=== PATIENT | female | born 1955 | race Hispanic/Latino ===

== ENCOUNTER 2019-06-07 16:36 | Observation (INO) | payer OTHER ==
[~2019-06-07] VITALS: Ht 152.4 cm; Wt 101.4 kg
[2019-06-07 16:55] VITALS: BP 163/81
--- NOTE | 2019-06-07 16:55 | NUR ---
ASSESSMENT RECEIVED PT FROM ER, A&OX3, AMBULATING FROM GURNEY TO BED, GAIT SLOW BUT STEADY WITH ASSIST, PT DOES C/O SOB, DYSPNEA ON EXERTION AND DIZZINESS. PT PLACED ON O2 4LNC AND STATED SHE FELT BETTER. PT DENIES PAIN OR NAUSEA. PT RESTING COMFORTABLY, CALL LIGHT WITHIN REACH, FAMILY AT BEDSIDE.
[2019-06-07] MEDS ORDERED: LIPA1CAP18 PO ×2 (17:22)
[2019-06-07] MEDS ORDERED: ALBU8.5H8 IH (17:22)
[2019-06-07] MEDS ORDERED: LEVO5TAB13 PO (17:22)
[2019-06-07] MEDS ORDERED: TROS60CA4 PO (17:22)
[2019-06-07] MEDS ORDERED: MTH/1CAP7 PO (17:22)
[2019-06-07] MEDS ORDERED: ASPI-1181 PO (17:22)
[2019-06-07] MEDS ORDERED: OLME5TAB6 PO (17:22)
[2019-06-07] MEDS ORDERED: METO10TA41 PO (17:22)
[2019-06-07] MEDS ORDERED: OMEP40CA37 PO (17:22)
[2019-06-07] MEDS ORDERED: TIOT4MIS5 IH (17:22)
[2019-06-07] MEDS ORDERED: BUDE10.2 IH (17:22)
[2019-06-07 17:44] LABS: HEMATOCRIT 43.4 % (36-48); MEAN CORPUSCULAR HEMOGLOBIN 29.9 pg (27.0-33.0); MEAN CORPUSCULAR HGB CONC 33.5 g/dL (32.0-36.0); MEAN CORPUSCULAR VOLUME 89.2 fL (79-99); PLATELET COUNT (AUTO) 191 K/uL (130-400); RED BLOOD CELL COUNT(AUTO) 4.87 MIL/uL (4.00-5.50); RED CELL DISTRIBUTION WIDTH 13.9 % (11.0-15.5); WHITE BLOOD COUNT (AUTO) 6.6 K/uL (4.8-10.8)
[2019-06-07 17:58] LABS: ALBUMIN 3.7 g/dL (3.5-5.0); BILIRUBIN,TOTAL 0.6 mg/dL (0.2-1.0); CREATININE 0.7 mg/dL (0.5-1.5); POTASSIUM 4.2 mmol/L (3.5-5.1); TOTAL PROTEIN, SERUM 7.3 g/dL (6.0-8.3)
[2019-06-07 18:04] LABS: B-TYPE NATRIURETIC PEPTIDE 8 pg/mL (0-100)
[2019-06-07] MEDS: NITROGLYCERIN 1GM/1 INCH PACKET TD SCH (18:15)
[2019-06-07] MEDS ORDERED: POTASSIUM CHLORIDE 20 MEQ ERTAB PO PRN (18:15)
[2019-06-07] MEDS ORDERED: LIDOCAINE HCL-MPF 1% 2ML VIAL IVP PRN (18:15)
[2019-06-07] MEDS ORDERED: POTASSIUM CHLORIDE 10% ELIXIR 20 MEQ/15 ML UDCUP PO PRN (18:15)
[2019-06-07] MEDS ORDERED: POTASSIUM CHLORIDE 20MEQ/100ML 100 ML IV PRN (18:15)
[2019-06-07] MEDS ORDERED: DIPHENHYDRAMINE HCL 25 MG CAPSULE PO PRN (18:15)
[2019-06-07] MEDS ORDERED: ACETAMINOPHEN 325 MG TAB PO PRN (18:15)
[2019-06-07] MEDS ORDERED: DEXTROSE 50%-WATER 50 ML DISP.SYRIN IV PRN (18:15)
[2019-06-07] MEDS ORDERED: CLONIDINE HCL 0.1 MG TABLET PO PRN (18:15)
[2019-06-07] MEDS ORDERED: GLUCAGON 1MG KIT 1 MG ML IM PRN (18:15)
[2019-06-07 18:26] LABS: CREATINE KINASE, TOTAL 59 U/L (21-232); MYOGLOBIN 39 ng/mL (10-92); TROPONIN I < 0.04 ng/mL (0.00-0.06)
[2019-06-07] MEDS ORDERED: VENTOLIN HFA IH PRN (18:30)
[2019-06-07] MEDS ORDERED: TROSPIUM CHLORIDE 60 MG PO PRN (18:30)
[2019-06-07 20:08] VITALS: BP 115/62
[2019-06-07] MEDS: METOPROLOL TARTRATE 25 MG TAB PO SCH (20:16)
[2019-06-07] MEDS: FAMOTIDINE 20MG TAB 20 MG TAB PO SCH (20:17)
[2019-06-07] MEDS: INSULIN HUMULIN R 100 UNIT/ML 3ML SQ SCH (21:00)
[2019-06-07] MEDS: IPRATROPIUM/ALBUTEROL SULFATE 3 ML SOLUTION IH PRN (23:01)
[2019-06-07] MEDS: ACETAMINOPHEN 325 MG TAB PO PRN (23:15)
[2019-06-07 23:42] VITALS: BP 103/76
[2019-06-07 23:47] LABS: CREATINE KINASE, TOTAL 56 U/L (21-232); MYOGLOBIN 36 ng/mL (10-92); TROPONIN I < 0.04 ng/mL (0.00-0.06)
[2019-06-08] MEDS: NITROGLYCERIN 1GM/1 INCH PACKET TD SCH ×5 (00:15→18:15)
[2019-06-08 04:00] VITALS: BP 101/67
[2019-06-08] MEDS: INSULIN HUMULIN R 100 UNIT/ML 3ML SQ SCH ×4 (06:01→21:00)
[2019-06-08 06:02] LABS: CREATINE KINASE, TOTAL 50 U/L (21-232); MYOGLOBIN 47 ng/mL (10-92); TROPONIN I < 0.04 ng/mL (0.00-0.06)
[2019-06-08] MEDS: IPRATROPIUM/ALBUTEROL SULFATE 3 ML SOLUTION IH PRN ×2 (06:34→18:47)
[2019-06-08 07:30] VITALS: BP 108/68
[2019-06-08] MEDS ORDERED: NON-FORMULARY MEDICATION 1 EACH (Omeprazole 40 MG) PO SCH (07:30)
[2019-06-08] MEDS: PANCRELIPASE PO SCH (08:00)
[2019-06-08] MEDS: URIBEL PO SCH ×2 (09:00→21:00)
[2019-06-08] MEDS: Tiotropium Bromide (Spiriva Respimat) IH SCH (09:00)
[2019-06-08] MEDS: OLMESARTAN MEDOXOMIL 5 MG PO SCH (09:00)
[2019-06-08] MEDS ORDERED: ASPIRIN 81MG TAB.CHEW PO SCH (09:00)
[2019-06-08] MEDS: FAMOTIDINE 20MG TAB 20 MG TAB PO SCH ×2 (09:37→21:17)
[2019-06-08] MEDS: ASPIRIN 81 MG EC TAB PO SCH (09:37)
[2019-06-08] MEDS: METOPROLOL TARTRATE 25 MG TAB PO SCH ×2 (09:37→21:16)
[2019-06-08] MEDS: ENOXAPARIN SODIUM 100 MG/1 ML SQ SCH (09:38)
[2019-06-08 10:36] LABS: HEMATOCRIT 41.6 % (36-48); MEAN CORPUSCULAR HEMOGLOBIN 29.6 pg (27.0-33.0); MEAN CORPUSCULAR HGB CONC 32.7 g/dL (32.0-36.0); MEAN CORPUSCULAR VOLUME 90.5 fL (79-99); NUCLEATED RED BLOOD CELLS 0.1 % (0.0-0.19); PLATELET COUNT (AUTO) 177 K/uL (130-400); RED CELL DISTRIBUTION WIDTH 14.3 % (11.0-15.5); WHITE BLOOD COUNT (AUTO) 6.1 K/uL (4.8-10.8)
[2019-06-08] MEDS: METOCLOPRAMIDE 10 MG TABLET PO PRN ×2 (10:38→15:33)
[2019-06-08 10:44] LABS: CREATININE 0.7 mg/dL (0.5-1.5)
[2019-06-08] MEDS: ACETAMINOPHEN 325 MG TAB PO PRN ×2 (10:48→15:33)
[2019-06-08 11:00] VITALS: BP 124/69
[2019-06-08] MEDS ORDERED: IOHEXOL-350 50ML VIAL IV ONE (11:30)
[2019-06-08 11:36] LABS: BASOPHILS % (MANUAL) 1 % (0-2); EOSINOPHILS % (MANUAL) 6 % (1-6); LYMPHOCYTES % (MANUAL) 28 % (22-44); MAN.DIFF COMMENT-IMPRESSION MANUAL DIFFERENTIAL; MONOCYTES % (MANUAL) 5 % (2-9); SEGMENTED NEUTROPHILS % 60 % (40-70)
[2019-06-08] MEDS ORDERED: REGADENOSON 0.4 MG/5 ML PF SYG IVP SCH (13:15)
[2019-06-08] MEDS: SYMBICORT 160-4.5 MCG INHALER IH SCH (14:00)
[2019-06-08] MEDS: CLINDAMYCIN HCL 150 MG CAP PO SCH ×2 (15:32→21:17)
[2019-06-08 16:00] VITALS: BP 104/70
--- NOTE | 2019-06-08 17:06 | NUR ---
JEFF PLAN VISITED SEVERAL TIMES PATIENT DOWN FOR PROCEDURES OR PROCEDURES IN ROOM. RAHAT WILL CONTINUE TO FOLLOW FOR IA. Addendum: 06/08/19 at 1707 by JUNITO FRANCES RN CM Amended: Links added.
[2019-06-08 20:15] VITALS: BP 113/78
[2019-06-08] MEDS ORDERED: Levocetirizine Dihydrochloride 5 MG PO SCH (21:00)
[2019-06-09] MEDS: NITROGLYCERIN 1GM/1 INCH PACKET TD SCH ×3 (00:42→12:06)
[2019-06-09 02:00] VITALS: BP 150/74
[2019-06-09 04:00] VITALS: BP 116/66
[2019-06-09] MEDS: CLINDAMYCIN HCL 150 MG CAP PO SCH ×2 (05:49→14:20)
[2019-06-09] MEDS: INSULIN HUMULIN R 100 UNIT/ML 3ML SQ SCH ×3 (06:27→16:30)
[2019-06-09] MEDS: IPRATROPIUM/ALBUTEROL SULFATE 3 ML SOLUTION IH PRN (06:51)
[2019-06-09 07:43] VITALS: BP 120/75
[2019-06-09] MEDS: PANCRELIPASE PO SCH (08:00)
[2019-06-09] MEDS: Tiotropium Bromide (Spiriva Respimat) IH SCH (09:00)
[2019-06-09] MEDS: URIBEL PO SCH (09:00)
[2019-06-09] MEDS: OLMESARTAN MEDOXOMIL 5 MG PO SCH (09:00)
[2019-06-09] MEDS: ASPIRIN 81 MG EC TAB PO SCH (09:49)
[2019-06-09] MEDS: METOPROLOL TARTRATE 25 MG TAB PO SCH (09:50)
[2019-06-09] MEDS: FAMOTIDINE 20MG TAB 20 MG TAB PO SCH (09:50)
[2019-06-09] MEDS: ENOXAPARIN SODIUM 100 MG/1 ML SQ SCH (09:51)
[2019-06-09 11:27] VITALS: BP 120/75
[2019-06-09] MEDS: ACETAMINOPHEN 325 MG TAB PO PRN (12:11)
[2019-06-09] MEDS: METOCLOPRAMIDE 10 MG TABLET PO PRN (12:18)
[2019-06-09] MEDS ORDERED: METHYLPREDNISOLONE SOD SUCC 40MG/ML 1ML IVP SCH ×2 (12:45→14:00)
[2019-06-09] MEDS: SYMBICORT 160-4.5 MCG INHALER IH SCH (14:00)
[2019-06-09 15:40] VITALS: BP 105/71
[2019-06-09 15:50] LABS: CREATININE 0.8 mg/dL (0.5-1.5); POTASSIUM 3.8 mmol/L (3.5-5.1)
[2019-06-09] MEDS ORDERED: IPRATROPIUM/ALBUTEROL SULFATE 3 ML SOLUTION IH SCH (18:00)
--- NOTE | 2019-06-09 19:30 | NUR ---
PT DISCHARGED AT THIS TIME BY SELENA LUEVANO. IV REMOVED. TELE PACK REMOVED. PRESCRIPTIONS HANDED TO PT BY SELENA. NO DISTRESS NOTED. ACCOMPANIED BY . ESCORTED BY PCP TO LOBBY.
[2019-06-09 19:56] VITALS: BP 114/65
--- NOTE | 2019-06-10 09:17 | NUR ---
Late Entry At 1300 case discussed with VASQUEZ Neely. Informed unable to do PFT study today. States okay to do as an outpatient. Updated CM and director.
== END 2019-06-09 19:55 | disposition home or self-care (01) ==
LOC: EDH 16:36 → INTOOBSV 16:37 → 2AH 16:37
PROVIDERS: ADMIT Internal Medicine; ATTEND Internal Medicine
DX: R07.89 Other chest pain (principal); E66.01 Morbid (severe) obesity due to excess calories; I11.9 Hypertensive heart disease without heart failure; K59.09 Other constipation; K86.1 Other chronic pancreatitis; K21.9 Gastro-esophageal reflux disease without esophagitis; J44.9 Chronic obstructive pulmonary disease, unspecified; K04.7 Periapical abscess without sinus; Z68.41 Body mass index [BMI] 40.0-44.9, adult; Z79.899 Other long term (current) drug therapy
CPT/HCPCS: 36415 ×3; 71046; 71270; 78452; 80048 ×2; 80053; 82550 ×3; 82948 ×8; 83690; 83874 ×3; 83880; 84484 ×3; 85025; 85027; 85378; 93005 ×3; 93017; 93306; 93970; 94640 ×4; 94664; 94760 ×2; 96372 ×2; 96374; 99284; A9500 ×2; G0378 ×47; J1650 ×2; J2785; J2920; Q9967

== ENCOUNTER → 2019-08-18 | Outpatient (CLI) | payer OTHER ==
[~2019-08-18] MED LIST: ALBU8.5H8 IH; ASPI-1181 PO; BUDE10.2 IH; LEVO5TAB13 PO; LIPA1CAP18 PO; METO10TA41 PO; MTH/1CAP7 PO; OLME5TAB6 PO; OMEP40CA13 PO; TIOT4MIS5 IH; TROS60CA4 PO
== END | disposition home or self-care (01) ==
LOC: RAH 14:44
PROVIDERS: ATTEND Internal Medicine Cardiovascular Disease
DX: Z13.6 Encounter for screening for cardiovascular disorders (principal)
CPT/HCPCS: 75571